=== PATIENT | female | born 1960 | race Caucasian/White ===

== ENCOUNTER 2017-08-10 10:40 | Emergency (ER) | payer SELFPAY ==
[2017-08-10 10:48] VITALS: BP 147/79; BMI 40.0
[2017-08-10] MEDS ORDERED: CLARITIN PO STA (11:34)
[2017-08-10] MEDS ORDERED: MOTRIN TAB 800 MG PO STA (11:34)
--- NOTE | 2017-08-10 11:38 | DR.GENAD ---
HPI - PCP Primary Care Physician: HENSLEY - Complaint/Symptoms Chief Complaint Doctors Comments: Patient complains of cold, cough, congestion, nasal congestion with bad teeth with problems breathing through her nose. States she has a histor of bronchitis and wanted to be checked to make sure it did not turn into pneumonia. states she feels like fluid in her left ear. She denies fever, chills, nausea, vomiting, diarrhea or hematuria. State she has been taking her medicines. She has been having left shoulder pain when she move her arm and work. Her left wrist hurts at times and appears to swell. She denies any recent trauma. Chief Complaint:: CAN'T BREATHE AND FEELS LIKE THERE IS FLUID IN RIGHT LUNG. Self Treatment fo Chief Complaint: OTC MEDCICINE - Nurses notes reviewed Nurses Notes Review: Yes - Source History Provided: Patient - Mode of Arrival Mode of Arrival: Ambulatory - Timing Onset of Chief Complaint: 07/27/17 Came on: Gradually - Duration Duration: Intermittent How lon Duration: Days - Location Location: left shoulder pain - Severity Severity: Mild - Modifying Factors Worsens:: moving left shoulder Improves:: nothing PMH - PMH Past Medical History: Yes Past Medical History: Anxiety, Hypertension, Liver Disease, Renal Disease Past Surgical History: Yes Surgical History: - Family History History of Family Medical Conditions: Yes Family Medical History: Cancer, Coronary Artery Disease, Hypertension - Social History Does any household member use tobacco: No Alcohol Use: None Do you use any recreational Drugs:: No Lives With: Spouse Lives Where: Home - infectious screening In the last 2 months have you had wt loss of >10#?: NO Have you had fever, night sweats or hemotysis?: No Have you traveled outside the country in the last 6 months?: No Isolation: Standard ROS - Review of Systems Constitutional: No Symptoms Reported. negative: See HPI, Chills, Diaphoresis, Fever, Malaise, Weakness, Irritable, Fatigue, Loss of Appetite, Other Eyes: No Symptoms Reported ENTM: No Symptoms Reported, Nose Discharge, Nose Congestion. negative: See HPI , Ear Pain, Ear Discharge, Pulling on Ears, Hearing Loss, Nose Pain, Epistaxis, Mouth Pain, Mouth Swelling, Loose Teeth, Drooling, Throat Pain, Throat Swelling , Ear Foreign Body Respiratoy: No Symptoms Reported, Non-Productive Cough Cardiovascular: No Symptoms Reported. negative: See HPI, Chest Pain, Edema, Palpitations, Syncope, Cyanosis, Skin Mottling, Other Gastrointestinal/Abdominal: No Symptoms Reported Genitourinary: No Symptoms Reported Neurological: No Symptoms Reported Musculoskeletal: No Symptoms Reported, Left, Shoulder, Wrist Integumentary: No Symptoms Reported. negative: See HPI, Change in Color, Change in Hair/Nails, Dryness, Lesions, Lumps, Rash, Itching, Wound, Bruises, Juandice, Other Hematologic/Lymphatic: No Symptoms Reported Endocrine: No Symptoms Reported Psychiatric: No Symptoms Reported. negative: See HPI, Anxiety, Depression, Hallucinations, Excessive crying, Suicidal, Other PE - Vital Signs Vitals: Temperature 98.2 F Pulse Rate 78 Respiratory Rate 20 Blood Pressure [Left Arm] 178/91 Blood Pressure 147/79 O2 Sat by Pulse Oximetry 97 - General Limitations: No Limitations General Appearance: Alert, In No Apparent Distress - Head Head Exam: Normal Inspection, Atraumatic, Normocephalic - Eyes Eye exam: Normal Appearance, PERRL, EOMI. negative: Scleral Icterus, Conjunctival Injection, Nystagmus, Miosis, Mydrasis, Periorbital Swelling, Periorbital Tenderness, Other - ENT ENT Exam: Normal Exam, Normal Oropharynx, Normal External Ear Exam, Mucous Membranes Moist, TM's Normal Bilaterally External Ear Exam: Normal External Inspection TM/Canal Exam: Bilateral Normal Nose Exam: Normal Nose Exam. negative: Sinus Tenderness (nasal congestion, edematous mucosal), Nasal Deviation Mouth Exam: Normal Inspection Throat Exam: Normal Inspection. negative: Tonsillar Erythema, Tonsillomegaly, Tonsillar Exudate, R Peritonsillar Mass, L Peritonsillar Mass, Muffled Voice, Other - Neck Neck Exam: Normal Inspection, Full ROM, Trachea Midline. negative: Tenderness, Meningismus, Lymphadenopathy, Thyromegaly, Other - Chest Chest Inspection: Normal Inspection, Symmetric Chest Wall Rise - Respiratory Respiratory Exam: Normal Lung Sounds Bilat Respiratory Exam: Bilateral Clear to Auscultation - Cardiovascular Cardiovascular Exam: Regular Rate, Normal Rhythm, Normal Heart Sounds. negative : Bradycardia, Tachycardia, Irregular Rhythm, Systolic Murmur, Diastolic Murmur , Rubs, Gallop, Clicks, JVD, +S1, +S2, +S3, +S4, Other - Abdominal Exam Abdominal Exam: Normal Inspection, Normal Bowel Sounds, Soft. negative: Distention, Tenderness, Guarding, Rebound, Rigidity, Dimnished Bowel Sounds, Hyperactive Bowel Sounds, Hypoactive Bowel Sounds, Organomegaly, Trauma, Incision, Ascites, Mass, Bruit, Pulsatile Mass, Hernia, Other Abdominal Tenderness: negative: RUQ, RLQ, LUQ, LLQ, Epigastrium, Suprapubic, Diffuse, Mild, Moderate, Severe, Other - Extremities Extremities Exam: Normal Inspection, Full ROM, Tenderness (left shoulder tender on elevation and palpation at AC joint; no swelling or erythema; left wrist with good range of motion; no swelling), Normal Capillary Refill. negative: Edema, Joint Swelling, Calf Tenderness, Other - Back Back Exam: Normal Inspection, Full ROM. negative: Tenderness, (R) CVA Tenderness, (L) CVA Tenderness, Muscle Spasm, Paraspinal Tenderness, Vertebral Tenderness, Rashes, (R) Sciatic Notch Tenderness, (L) Sciatic Notch Tendern, (R ) Straight Leg Raise, (L) Straight Leg Raise, Other - Neurologic Neurological Exam: Alert, Oriented X3, CN II-XII Intact, Normal Gait, Reflexes Normal - Psychiatric Psychiatric Exam: Normal Affect, Normal Mood. negative: Depressed, Agitated, Anxious, Flat Affect, Manic, Homicidal Ideation, Suicidal Ideation, Other - Skin Skin Exam: Warm, Dry, Intact, Normal Color - Diagnosis Discharge Problem: Bronchitis, Bursitis of left shoulder Sinusitis, acute Qualifiers: Sinusitis location: maxillary - Discharge Plan Disposition: 01 HOME, SELF-CARE Condition: Stable Prescriptions: Ciprofloxacin HCl [CIPRO 500 MG TAB *] 500 mg PO Q12H #20 tab Ibuprofen [MOTRIN TAB 800 MG *] 800 mg PO BID PRN #60 tab PRN Reason: Pain/Inflammation Loratadine [Claritin] 10 mg PO DAILY #30 tab - Follow ups/Referrals Follow ups/Referrals: GABI HENSLEY [Primary Care Provider] - 3 days - Instructions Instructions: Sinusitis, Adult, [id number], Acute Bronchitis, Bursitis, Easy- to-Read
[2017-08-10] MEDS ORDERED: CLARITIN ONE (11:46)
[2017-08-10] MEDS ORDERED: MOTRIN TAB 800 MG PO ONE (11:46)
[2017-08-10] MEDS ORDERED: LEVAQUIN TAB 500 MG ONE (11:47)
[2017-08-10] MEDS ORDERED: LEVAQUIN TAB 500 MG PO SCH (12:00)
== END 2017-08-10 12:14 | disposition home or self-care (01) ==
LOC: ER 10:58
DX: J40 Bronchitis, not specified as acute or chronic (principal); J01.80 Other acute sinusitis; M75.52 Bursitis of left shoulder
CPT/HCPCS: 99282